=== PATIENT | male | born 1995 | race Caucasian/White ===

== ENCOUNTER 2025-11-01 11:25 | Emergency (ER) | payer OTHER ==
[~2025-11-01] VITALS: Ht 182.9 cm; Wt 104.3 kg
[2025-11-01] MEDS ORDERED: Lidocaine 4% 1 Patch TOP ONE (11:40)
[2025-11-01] MEDS ORDERED: Ketorolac Tromethamine 30mg Vial IM ONE (11:40)
[2025-11-01] MEDS ORDERED: Percocet 5-3251 EACH PO (13:15)
[2025-11-01] MEDS ORDERED: IBUP800 PO (13:15)
[2025-11-01] MEDS ORDERED: LIDO700A20 TOP (13:15)
== END 2025-11-01 14:02 | disposition home or self-care (01) ==
LOC: ER 11:25 → EDSEX 11:25 → ER 14:02
DX: S29.011A Strain of muscle and tendon of front wall of thorax, initial encounter (principal); X58.XXXA Exposure to other specified factors, initial encounter
CPT/HCPCS: 71046; 96372; 99283-25; A9270; J1885